=== PATIENT | female | born 1975 | race Hispanic/Latino ===

== ENCOUNTER 2017-10-25 18:15 | Emergency (ER) | payer OTHER ==
[~2017-10-25 18:15] MED LIST: ASPI-555 PO; BUDE10.2 IH; METF500T6 PO
[2017-10-25] MEDS ORDERED: METHYLPREDNISOLONE SOD SUCC 125MG/2ML VIAL ONE (18:35)
[2017-10-25] MEDS ORDERED: IPRATROPIUM/ALBUTEROL SULFATE 3 ML SOLUTION IH ONE (18:48)
== END 2017-10-25 19:22 | disposition home or self-care (01) ==
LOC: EDH 18:15
DX: J45.21 Mild intermittent asthma with (acute) exacerbation (principal); E11.9 Type 2 diabetes mellitus without complications; E78.5 Hyperlipidemia, unspecified; Z90.49 Acquired absence of other specified parts of digestive tract
CPT/HCPCS: 94640; 96372; 99283; J2930

== ENCOUNTER 2019-05-17 22:19 | Emergency (ER) | payer OTHER ==
[~2019-05-17 22:19] MED LIST changes: +METF-444 PO; -METF500T6 PO
[2019-05-17] MEDS ORDERED: LIDOCAINE 2%-EPI 1:200,000 20 ML VIAL IJ ONE (23:46)
[2019-05-18 00:09] LABS: BASOPHILS % (AUTO) 0.9 % (0.0-5.0); EOSINOPHILS % (AUTO) 0.7 % (0.0-8.0); LYMPHOCYTES % (AUTO) 23.6 % (21.0-51.0); MEAN CORPUSCULAR HEMOGLOBIN 29.1 pg (27.0-33.0); MEAN CORPUSCULAR HGB CONC 34.1 g/dL (32.0-36.0); MEAN CORPUSCULAR VOLUME 85.2 fL (79-99); MONOCYTES % (AUTO) 5.5 % (3.0-13.0); NEUTROPHILS % (AUTO) 69.3 % (40.0-77.0); PLATELET COUNT (AUTO) 329 K/uL (130-400); RED BLOOD CELL COUNT(AUTO) 4.58 MIL/uL (4.00-5.50); RED CELL DISTRIBUTION WIDTH 13.9 % (11.0-15.5); WHITE BLOOD COUNT (AUTO) 14.8 K/uL (4.8-10.8)
[2019-05-18 00:16] LABS: CREATININE 0.5 mg/dL (0.5-1.5); POTASSIUM 4.1 mmol/L (3.5-5.1)
[2019-05-18] MEDS ORDERED: CLINDAMYCIN 600 MG/D5% WATER 50 ML IV ONE (01:20)
== END 2019-05-18 02:09 | disposition home or self-care (01) ==
LOC: EDH 22:19
DX: L02.211 Cutaneous abscess of abdominal wall (principal); E66.9 Obesity, unspecified; J45.909 Unspecified asthma, uncomplicated; E78.5 Hyperlipidemia, unspecified; E11.9 Type 2 diabetes mellitus without complications; Z90.49 Acquired absence of other specified parts of digestive tract; Z68.42 Body mass index [BMI] 45.0-49.9, adult
CPT/HCPCS: 10060; 36415; 85025; 80048; 96365; 99284; J3490 ×2

== ENCOUNTER 2019-09-25 13:08 | Inpatient (IN) | payer OTHER ==
[~2019-09-25] VITALS: Ht 157.5 cm; Wt 118.4 kg
[2019-09-25 13:54] LABS: BASOPHILS % (AUTO) 0.3 % (0.0-5.0); EOSINOPHILS % (AUTO) 0.3 % (0.0-8.0); HEMATOCRIT 40.8 % (36-48); LYMPHOCYTES % (AUTO) 20.7 % (21.0-51.0); MEAN CORPUSCULAR HEMOGLOBIN 28.2 pg (27.0-33.0); MEAN CORPUSCULAR HGB CONC 33.1 g/dL (32.0-36.0); MEAN CORPUSCULAR VOLUME 85.2 fL (79-99); MONOCYTES % (AUTO) 4.8 % (3.0-13.0); NEUTROPHILS % (AUTO) 73.5 % (40.0-77.0); PLATELET COUNT (AUTO) 368 K/uL (130-400); RED BLOOD CELL COUNT(AUTO) 4.79 MIL/uL (4.00-5.50); RED CELL DISTRIBUTION WIDTH 13.1 % (11.0-15.5); WHITE BLOOD COUNT (AUTO) 11.9 K/uL (4.8-10.8)
[2019-09-25 14:12] LABS: CREATININE 0.7 mg/dL (0.5-1.5); POTASSIUM 3.7 mmol/L (3.5-5.1)
[2019-09-25] MEDS ORDERED: ZOSYN 3.375GM+NS 50ML 50 ML IV ONE (14:12)
[2019-09-25 14:13] LABS: APPEARANCE,URINE Clear (CLEAR); BILIRUBIN,URINE Negative (NEGATIVE); COLOR,URINE Yellow (YELLOW); GLUCOSE, URINE (UA) Negative (NEGATIVE); KETONES,URINE 15 mg/dL (NEGATIVE); LEUKOCYTE ESTERASE ,URINE Trace (NEGATIVE); NITRATE,URINE Negative (NEGATIVE); OCCULT BLOOD,URINE Negative (NEGATIVE); PROTEIN,URINE Negative (NEGATIVE); UROBILINOGEN,URINE 0.2 mg/dL (0.2-1.0)
[2019-09-25 14:16] LABS: ALBUMIN 3.6 g/dL (3.5-5.0); BILIRUBIN,TOTAL 0.4 mg/dL (0.2-1.0); TOTAL PROTEIN, SERUM 8.4 g/dL (6.0-8.3)
[2019-09-25 14:25] LABS: HCG,QUAL RESULT NEGATIVE (NEGATIVE)
[2019-09-25 14:26] LABS: BACTERIA,URINE Moderate /HPF (None Seen); MUCUS,URINE Moderate LPF (None Seen); SQUAMOUS EPITHELIAL CELL,UR Moderate /HPF (0-2)
[2019-09-25] MEDS ORDERED: IOHEXOL-350 75 ML VIAL IV ONE (14:45)
[2019-09-25] MEDS ORDERED: VANCOMYCIN 1.75 GM in SODIUM CHLORIDE 0.9% 250 ML IV SCH (15:15)
[2019-09-25 15:55] VITALS: BP 123/84
[2019-09-25] MEDS ORDERED: VANCOMYCIN PROTOCOL PER PHARMACY IV SCH (17:45)
[2019-09-25] MEDS ORDERED: COMPOUND IV REFRIGERATED 1 EACH IVSOLN MISC PRN (17:45)
[2019-09-25] MEDS ORDERED: ACETAMINOPHEN 325 MG TAB PO PRN (17:45)
[2019-09-25] MEDS ORDERED: TRAM50TA4 PO (18:30)
[2019-09-25] MEDS ORDERED: ATOR40TA69 PO (18:30)
[2019-09-25] MEDS ORDERED: GABA-531 PO (18:30)
[2019-09-25] MEDS ORDERED: PANT40TA25 PO (18:30)
[2019-09-25] MEDS ORDERED: LISI-617 PO (18:30)
[2019-09-25] MEDS ORDERED: METF-446 PO (18:30)
[2019-09-25] MEDS ORDERED: PIOG45TA64 PO (18:30)
[2019-09-25] MEDS: ENOXAPARIN SODIUM 40 MG/0.4 ML SYRINGE SQ SCH (19:59)
[2019-09-25 20:00] VITALS: BP 133/87
[2019-09-25] MEDS ORDERED: SODIUM CHLORIDE 0.9% 250 ML IV ONE (20:07)
[2019-09-25] MEDS: ZOSYN 3.375GM+NS 50ML 50 ML IV SCH (20:20)
[2019-09-25] MEDS: INSULIN R PO SS1 SQ SCH (21:17)
[2019-09-25] MEDS: VANCOMYCIN 1.75 GM in SODIUM CHLORIDE 0.9% 250 ML IV SCH (23:44)
[2019-09-26] VITALS (7 sets, daily range): BP systolic 100–137; BP diastolic 59–86
[2019-09-26] MEDS: INSULIN R PO SS1 SQ SCH ×4 (05:30→20:59)
[2019-09-26] MEDS: ZOSYN 3.375GM+NS 50ML 50 ML IV SCH ×3 (05:38→20:53)
[2019-09-26 05:59] LABS: BASOPHILS % (AUTO) 0.6 % (0.0-5.0); EOSINOPHILS % (AUTO) 0.9 % (0.0-8.0); HEMATOCRIT 35.3 % (36-48); LYMPHOCYTES % (AUTO) 29.7 % (21.0-51.0); MEAN CORPUSCULAR HEMOGLOBIN 28.6 pg (27.0-33.0); MEAN CORPUSCULAR HGB CONC 33.1 g/dL (32.0-36.0); MEAN CORPUSCULAR VOLUME 86.3 fL (79-99); MONOCYTES % (AUTO) 6.1 % (3.0-13.0); NEUTROPHILS % (AUTO) 62.3 % (40.0-77.0); PLATELET COUNT (AUTO) 306 K/uL (130-400); RED BLOOD CELL COUNT(AUTO) 4.09 MIL/uL (4.00-5.50)
[2019-09-26 06:21] LABS: ALBUMIN 2.9 g/dL (3.5-5.0); BILIRUBIN,TOTAL 0.4 mg/dL (0.2-1.0); CREATININE 0.7 mg/dL (0.5-1.5); PHOSPHORUS 3.9 mg/dL (2.5-4.9)
[2019-09-26] MEDS: VANCOMYCIN 1.75 GM in SODIUM CHLORIDE 0.9% 250 ML IV SCH ×2 (10:00→21:51)
[2019-09-26] MEDS: PANTOPRAZOLE SODIUM 40 MG TABLET.DR PO SCH (10:00)
--- NOTE | 2019-09-26 16:06 | NUR ---
D/C PLAN CM spoke to pt regarding d/c planning. Pt is [place] and lives with sister. States sister can assist in care if needed. Denies having any DME. Plan to home. No needs verbalized or identified. CM to f/u. Addendum: 09/26/19 at 1607 by CHRISTIANO WOOD CM Amended: Links added.
[2019-09-26] MEDS: METFORMIN HCL 500 MG TABLET PO SCH ×2 (17:00→17:39)
[2019-09-26] MEDS: ENOXAPARIN SODIUM 40 MG/0.4 ML SYRINGE SQ SCH (17:39)
[2019-09-26] MEDS ORDERED: PIOG45TA64 PO (18:03)
[2019-09-26] MEDS: GABAPENTIN 300 MG CAPSULE PO SCH (20:54)
[2019-09-26] MEDS: TRAMADOL HCL 50 MG TABLET PO SCH (20:55)
[2019-09-26] MEDS ORDERED: SODIUM CHLORIDE 0.9% 250 ML IV ONE (23:26)
[2019-09-27 04:17] VITALS: BP 124/66
[2019-09-27] MEDS: ZOSYN 3.375GM+NS 50ML 50 ML IV SCH ×3 (04:33→20:46)
[2019-09-27 05:47] LABS: HEMATOCRIT 34.9 % (36-48); MEAN CORPUSCULAR HEMOGLOBIN 28.7 pg (27.0-33.0); MEAN CORPUSCULAR HGB CONC 33.2 g/dL (32.0-36.0); MEAN CORPUSCULAR VOLUME 86.4 fL (79-99); PLATELET COUNT (AUTO) 303 K/uL (130-400); RED BLOOD CELL COUNT(AUTO) 4.04 MIL/uL (4.00-5.50); WHITE BLOOD COUNT (AUTO) 9.5 K/uL (4.8-10.8)
[2019-09-27] MEDS: INSULIN R PO SS1 SQ SCH ×4 (06:13→21:00)
[2019-09-27 06:22] LABS: ALBUMIN 2.8 g/dL (3.5-5.0); BILIRUBIN,TOTAL 0.3 mg/dL (0.2-1.0); CREATININE 0.8 mg/dL (0.5-1.5); POTASSIUM 3.7 mmol/L (3.5-5.1); TOTAL PROTEIN, SERUM 6.8 g/dL (6.0-8.3)
[2019-09-27] MEDS: METFORMIN HCL 500 MG TABLET PO SCH ×2 (08:00→17:31)
[2019-09-27 08:59] VITALS: BP 130/92
[2019-09-27] MEDS ORDERED: PANTOPRAZOLE SODIUM 40 MG TABLET.DR PO SCH (09:00)
[2019-09-27] MEDS ORDERED: PIOGLITAZONE HCL 45 MG TAB PO SCH (09:00)
[2019-09-27] MEDS: GABAPENTIN 300 MG CAPSULE PO SCH ×3 (10:00→21:01)
[2019-09-27] MEDS: ATORVASTATIN CALCIUM 40 MG TABLET PO SCH (10:00)
[2019-09-27] MEDS: PIOGLITAZONE HCL 45 MG TAB PO SCH (10:00)
[2019-09-27] MEDS: TRAMADOL HCL 50 MG TABLET PO SCH ×2 (10:01→21:01)
[2019-09-27] MEDS: PANTOPRAZOLE SODIUM 40 MG TABLET.DR PO SCH (10:01)
[2019-09-27] MEDS: LISINOPRIL 5 MG TABLET PO SCH (10:01)
[2019-09-27] MEDS: VANCOMYCIN 1.75 GM in SODIUM CHLORIDE 0.9% 250 ML IV SCH ×2 (10:06→20:47)
[2019-09-27 12:54] VITALS: BP 132/70
--- NOTE | 2019-09-27 15:40 | NUR ---
[facility] consult Patient assessed as ordered. Patient with abscesses to panniculus in the intertriginous areas and on right thigh proximally. Wound on left side with purulent drainage; right side and right thigh with serosanguinous drainage. Patient has been evaluated by surgeon and is not a candidate for surgical intervention at this time. [facility] recommendations submitted including a consult with [facility] physician. Addendum: 09/27/19 at 1615 by DON CHILDRESS RN/AYLIN Amended: Links added.
[2019-09-27 16:40] VITALS: BP 118/57
[2019-09-27] MEDS: ENOXAPARIN SODIUM 40 MG/0.4 ML SYRINGE SQ SCH (17:32)
[2019-09-27 19:12] VITALS: BP 135/91
[2019-09-28] VITALS (7 sets, daily range): BP systolic 99–143; BP diastolic 52–86
[2019-09-28 05:21] LABS: MEAN CORPUSCULAR HEMOGLOBIN 28.5 pg (27.0-33.0); MEAN CORPUSCULAR HGB CONC 32.7 g/dL (32.0-36.0); MEAN CORPUSCULAR VOLUME 87.1 fL (79-99); PLATELET COUNT (AUTO) 271 K/uL (130-400); RED BLOOD CELL COUNT(AUTO) 3.79 MIL/uL (4.00-5.50); RED CELL DISTRIBUTION WIDTH 13.2 % (11.0-15.5); WHITE BLOOD COUNT (AUTO) 9.4 K/uL (4.8-10.8)
[2019-09-28] MEDS: ZOSYN 3.375GM+NS 50ML 50 ML IV SCH ×3 (05:30→21:19)
[2019-09-28 05:58] LABS: POTASSIUM 3.5 mmol/L (3.5-5.1)
[2019-09-28] MEDS: INSULIN R PO SS1 SQ SCH ×4 (06:47→20:18)
[2019-09-28] MEDS: VANCOMYCIN 1.75 GM in SODIUM CHLORIDE 0.9% 250 ML IV SCH (08:51)
[2019-09-28] MEDS: PIOGLITAZONE HCL 45 MG TAB PO SCH (08:54)
[2019-09-28] MEDS: ONDANSETRON HCL 4 MG/2 ML VIAL IVP PRN ×2 (08:54→17:28)
[2019-09-28] MEDS: GABAPENTIN 300 MG CAPSULE PO SCH ×3 (08:54→21:19)
[2019-09-28] MEDS: TRAMADOL HCL 50 MG TABLET PO SCH ×2 (08:55→21:19)
[2019-09-28] MEDS: METFORMIN HCL 500 MG TABLET PO SCH ×2 (08:55→17:17)
[2019-09-28] MEDS: ATORVASTATIN CALCIUM 40 MG TABLET PO SCH (08:56)
[2019-09-28] MEDS: PANTOPRAZOLE SODIUM 40 MG TABLET.DR PO SCH (08:56)
[2019-09-28] MEDS: LISINOPRIL 5 MG TABLET PO SCH (08:56)
[2019-09-28] MEDS: ENOXAPARIN SODIUM 40 MG/0.4 ML SYRINGE SQ SCH (17:17)
[2019-09-28] MEDS ORDERED: FLUCONAZOLE 100 MG TAB PO SCH (21:00)
[2019-09-29 03:20] VITALS: BP 131/89
[2019-09-29 05:49] LABS: HEMATOCRIT 31.6 % (36-48); MEAN CORPUSCULAR HEMOGLOBIN 27.9 pg (27.0-33.0); MEAN CORPUSCULAR HGB CONC 32.3 g/dL (32.0-36.0); MEAN CORPUSCULAR VOLUME 86.6 fL (79-99); PLATELET COUNT (AUTO) 277 K/uL (130-400); RED BLOOD CELL COUNT(AUTO) 3.65 MIL/uL (4.00-5.50); RED CELL DISTRIBUTION WIDTH 13.2 % (11.0-15.5); WHITE BLOOD COUNT (AUTO) 10.1 K/uL (4.8-10.8)
[2019-09-29] MEDS: INSULIN R PO SS1 SQ SCH ×4 (05:55→20:31)
[2019-09-29] MEDS: ZOSYN 3.375GM+NS 50ML 50 ML IV SCH ×2 (05:55→13:17)
[2019-09-29 05:57] LABS: CREATININE 1.3 mg/dL (0.5-1.5); POTASSIUM 3.2 mmol/L (3.5-5.1)
[2019-09-29 08:00] VITALS: BP 109/70
[2019-09-29] MEDS: METFORMIN HCL 500 MG TABLET PO SCH ×2 (08:45→17:00)
[2019-09-29] MEDS: TRAMADOL HCL 50 MG TABLET PO SCH ×2 (08:46→21:42)
[2019-09-29] MEDS: LISINOPRIL 5 MG TABLET PO SCH (08:47)
[2019-09-29] MEDS: ATORVASTATIN CALCIUM 40 MG TABLET PO SCH (08:47)
[2019-09-29] MEDS: PANTOPRAZOLE SODIUM 40 MG TABLET.DR PO SCH (08:47)
[2019-09-29] MEDS: VANCOMYCIN 1.5 GM in SODIUM CHLORIDE 0.9% 250 ML IV SCH ×2 (08:47→21:51)
[2019-09-29] MEDS: GABAPENTIN 300 MG CAPSULE PO SCH ×3 (08:47→21:41)
[2019-09-29] MEDS: PIOGLITAZONE HCL 45 MG TAB PO SCH (08:47)
--- NOTE | 2019-09-29 08:58 | NUR ---
PER VICKI, PHARMACY DOES NOT CARRY THE ANASEPT SPRAY NEEDED FOR WOUND CLEANING. CALLED [facility] AND THEY STATED THAT I NEEDED TO GO AND PICK IT UP.
[2019-09-29 12:00] VITALS: BP 120/73
[2019-09-29 16:00] VITALS: BP 113/74
[2019-09-29] MEDS: ONDANSETRON HCL 4 MG/2 ML VIAL IVP PRN (17:52)
[2019-09-29] MEDS: ENOXAPARIN SODIUM 40 MG/0.4 ML SYRINGE SQ SCH (18:06)
[2019-09-29] MEDS ORDERED: POTASSIUM CHLORIDE 10% ELIXIR 20 MEQ/15 ML UDCUP PO PRN (18:45)
[2019-09-29] MEDS ORDERED: POTASSIUM CHLORIDE 20MEQ/100ML 100 ML IV PRN (18:45)
[2019-09-29] MEDS ORDERED: LIDOCAINE HCL-MPF 1% 2ML VIAL IV PRN (18:45)
[2019-09-29 19:00] VITALS: BP 130/65
[2019-09-29] MEDS: POTASSIUM CHLORIDE 20 MEQ ERTAB PO PRN (21:42)
[2019-09-29 23:00] VITALS: BP 134/68
[2019-09-30 03:00] VITALS: BP 101/55
[2019-09-30] MEDS: POTASSIUM CHLORIDE 20 MEQ ERTAB PO PRN ×4 (04:56→21:17)
[2019-09-30 05:10] LABS: BASOPHILS % (AUTO) 0.2 % (0.0-5.0); EOSINOPHILS % (AUTO) 1.6 % (0.0-8.0); HEMATOCRIT 33.8 % (36-48); LYMPHOCYTES % (AUTO) 19.6 % (21.0-51.0); MEAN CORPUSCULAR HEMOGLOBIN 29.4 pg (27.0-33.0); MEAN CORPUSCULAR HGB CONC 33.7 g/dL (32.0-36.0); MEAN CORPUSCULAR VOLUME 87.1 fL (79-99); MONOCYTES % (AUTO) 6.3 % (3.0-13.0); NEUTROPHILS % (AUTO) 71.9 % (40.0-77.0); PLATELET COUNT (AUTO) 282 K/uL (130-400); RED BLOOD CELL COUNT(AUTO) 3.88 MIL/uL (4.00-5.50); RED CELL DISTRIBUTION WIDTH 13.2 % (11.0-15.5); WHITE BLOOD COUNT (AUTO) 8.5 K/uL (4.8-10.8)
[2019-09-30 05:39] LABS: CREATININE 1.3 mg/dL (0.5-1.5); MAGNESIUM 1.8 mg/dL (1.80-2.40); POTASSIUM 3.1 mmol/L (3.5-5.1)
[2019-09-30] MEDS: INSULIN R PO SS1 SQ SCH ×4 (06:01→21:00)
[2019-09-30 08:00] VITALS: BP 106/57
[2019-09-30] MEDS: METFORMIN HCL 500 MG TABLET PO SCH ×2 (08:00→17:08)
[2019-09-30] MEDS: VANCOMYCIN 1.5 GM in SODIUM CHLORIDE 0.9% 250 ML IV SCH ×2 (08:50→21:16)
[2019-09-30] MEDS: LISINOPRIL 5 MG TABLET PO SCH (08:51)
[2019-09-30] MEDS: TRAMADOL HCL 50 MG TABLET PO SCH ×2 (08:51→21:17)
[2019-09-30] MEDS: PANTOPRAZOLE SODIUM 40 MG TABLET.DR PO SCH (08:51)
[2019-09-30] MEDS: PIOGLITAZONE HCL 45 MG TAB PO SCH (08:51)
[2019-09-30] MEDS: ATORVASTATIN CALCIUM 40 MG TABLET PO SCH (08:51)
[2019-09-30] MEDS: GABAPENTIN 300 MG CAPSULE PO SCH ×3 (08:51→21:16)
--- NOTE | 2019-09-30 11:18 | NUR ---
RDSCREEN - LOS X 5 Pt admitted for Cellulitis, Hx of DM, HTN, HLD, CAD. Upon visit, Pt reports tolerating current diet order with no report of GI distress, Good PO at 75%. Recommend to continue current diet order. Pending weight loss nutrition education. Pt Obesity Class III (BMI 46.7). Pt monitored labs: K 3.1, BUN 6, GFR 47, BG 115, Ca 8.3, Alb 2.8. RD to follow up. Please notify RD as additional nutrition concerns arise. Thank you. Addendum: 09/30/19 at [address] Amended: Links added.
[2019-09-30 11:30] VITALS: BP 105/62
[2019-09-30] MEDS: MAGNESIUM 2GM PREMIX 50ML 50 ML IV PRN (12:19)
[2019-09-30 15:43] VITALS: BP 107/62
[2019-09-30] MEDS: ENOXAPARIN SODIUM 40 MG/0.4 ML SYRINGE SQ SCH (17:08)
--- NOTE | 2019-09-30 18:01 | NUR ---
BIOPSY RESULTS TONIA BERRIOS AWARE OF BIOPSY RESULTS. STATES DR VILLA NEEDS TO BE THE ONE WHO GIVES THE RESULTS TO THE PATIENT. I WILL INFORM DR VILLA OF THE RESULTS. Addendum: 09/30/19 at 1804 by CARRIE SOMMER RN RN DISREGARD NOTE. WROTE PATIENT.
[2019-09-30 19:00] VITALS: BP 128/73
[2019-09-30 23:00] VITALS: BP 136/87
[2019-10-01 03:00] VITALS: BP 102/59
[2019-10-01 05:29] LABS: BASOPHILS % (AUTO) 0.3 % (0.0-5.0); EOSINOPHILS % (AUTO) 1.6 % (0.0-8.0); HEMATOCRIT 31.7 % (36-48); LYMPHOCYTES % (AUTO) 21.9 % (21.0-51.0); MEAN CORPUSCULAR HEMOGLOBIN 28.3 pg (27.0-33.0); MEAN CORPUSCULAR HGB CONC 32.2 g/dL (32.0-36.0); MEAN CORPUSCULAR VOLUME 88.1 fL (79-99); MONOCYTES % (AUTO) 6.6 % (3.0-13.0); NEUTROPHILS % (AUTO) 69.3 % (40.0-77.0); PLATELET COUNT (AUTO) 255 K/uL (130-400); RED CELL DISTRIBUTION WIDTH 13.1 % (11.0-15.5); WHITE BLOOD COUNT (AUTO) 8.6 K/uL (4.8-10.8)
[2019-10-01] MEDS: INSULIN R PO SS1 SQ SCH ×2 (05:31→11:30)
[2019-10-01 05:56] LABS: CREATININE 1.3 mg/dL (0.5-1.5); MAGNESIUM 1.8 mg/dL (1.80-2.40); POTASSIUM 3.4 mmol/L (3.5-5.1)
[2019-10-01] MEDS: POTASSIUM CHLORIDE 20 MEQ ERTAB PO PRN ×2 (06:11→09:46)
[2019-10-01] MEDS: MAGNESIUM 2GM PREMIX 50ML 50 ML IV PRN (06:40)
[2019-10-01 08:00] VITALS: BP 105/63
[2019-10-01] MEDS: METFORMIN HCL 500 MG TABLET PO SCH (08:31)
[2019-10-01] MEDS: ATORVASTATIN CALCIUM 40 MG TABLET PO SCH (08:31)
[2019-10-01] MEDS: PANTOPRAZOLE SODIUM 40 MG TABLET.DR PO SCH (08:31)
[2019-10-01] MEDS: LISINOPRIL 5 MG TABLET PO SCH (08:32)
[2019-10-01] MEDS: TRAMADOL HCL 50 MG TABLET PO SCH (08:34)
[2019-10-01] MEDS: PIOGLITAZONE HCL 45 MG TAB PO SCH (09:00)
[2019-10-01] MEDS: VANCOMYCIN 1.5 GM in SODIUM CHLORIDE 0.9% 250 ML IV SCH (09:00)
[2019-10-01] MEDS: GABAPENTIN 300 MG CAPSULE PO SCH (09:47)
[2019-10-01 11:58] VITALS: BP 116/76
[2019-10-01] MEDS ORDERED: AMOX-429 PO (13:09)
[2019-10-01] MEDS ORDERED: SULF1TAB42 PO (13:09)
--- NOTE | 2019-10-01 13:35 | NUR ---
PER ADMISSION DATABASE, PT ALREADY REC'D FLU SHOT THIS SEASON. Addendum: 10/01/19 at 1338 by EVIN TABARES RN RN Amended: Links added.
--- NOTE | 2019-10-01 13:40 | NUR ---
RE: PREVIOUS ORDER TO SET UP HOME HEALTH FOR WOUND CARE: SPOKE WITH PT'S SISTER VELASQUEZ, WHO AGREED TO DO DAILY WOUND CARE FOR PT; SHE STATED SHE WAS AT THE BEDSIDE DURING THE LAST DRESSING CHANGE AND WAS INSTRUCTED BY NURSE HOW TO PERFORM. DR POWELL MADE AWARE, ORDERS TO SEND HOME/SELF CARE. Addendum: 10/01/19 at 1344 by EVIN TABARES RN RN ATTEMPTED TO SET UP APPT WITH [facility] PER D/C ORDERS; SPOKE WITH "RAYSHAWN"; PT INFORMATION GIVEN. HE STATED OFFICE WILL CALL PT WITH APPT DATE/TIME.
== END 2019-10-01 14:35 | disposition home or self-care (01) | DRG 603 ==
LOC: EDH 13:08 → EDHIP 16:13 → 3BH 18:01
PROVIDERS: ADMIT Internal Medicine Nephrology; ATTEND Internal Medicine Nephrology
DX: L03.311 Cellulitis of abdominal wall (principal); Z68.42 Body mass index [BMI] 45.0-49.9, adult; I10 Essential (primary) hypertension; M79.3 Panniculitis, unspecified; E78.5 Hyperlipidemia, unspecified; I25.10 Atherosclerotic heart disease of native coronary artery without angina pectoris; K59.00 Constipation, unspecified; B95.7 Other staphylococcus as the cause of diseases classified elsewhere; E66.9 Obesity, unspecified; I73.9 Peripheral vascular disease, unspecified; M54.9 Dorsalgia, unspecified; N28.9 Disorder of kidney and ureter, unspecified; L02.211 Cutaneous abscess of abdominal wall; E11.51 Type 2 diabetes mellitus with diabetic peripheral angiopathy without gangrene; D64.9 Anemia, unspecified; Z90.49 Acquired absence of other specified parts of digestive tract
CPT/HCPCS: 36415; 74177; 80048; 80053; 80202; 81001; 81025; 82948; 83735; 84100; 85025; 85027; 87040; 87070; 87076; 87088; A6260; G0378; J1650; J1815; J2405; J2543; J3370; J3475; J7030; Q9967